=== PATIENT | female | born 1990 | race Caucasian/White ===

== ENCOUNTER 2018-12-08 00:24 | Emergency (ER) | payer SELFPAY ==
[~2018-12-08] VITALS: Ht 170.2 cm; Wt 63.5 kg
[2018-12-08 00:28] VITALS: Ht 170.2 cm; Wt 63.5 kg
[2018-12-08 01:23] VITALS: BP 132/70
== END 2018-12-08 01:23 | disposition other institution (70) ==
LOC: ED 00:24
DX: S61.411A Laceration without foreign body of right hand, initial encounter (principal); W45.8XXA Other foreign body or object entering through skin, initial encounter; Y93.89 Activity, other specified; Y92.89 Other specified places as the place of occurrence of the external cause; Y99.8 Other external cause status
CPT/HCPCS: J2001

== ENCOUNTER 2018-12-08 00:24 | Emergency (ER) | payer OTHER | END 2018-12-08 01:23 | disposition other institution (70) | LOC: ED 00:24 | DX: Z02.89 Encounter for other administrative examinations (principal) ==